=== PATIENT | male | born 1950 | race Caucasian/White ===

== ENCOUNTER → 2017-11-29 | Outpatient (CLI) | payer OTHER, MEDICARE ==
--- NOTE | 2017-11-29 16:00 | DIAGNOSTIC IMAGING REPORT ---
TEMPORAL ORB/SELLA/TEMP W/O CLINICAL HISTORY: 67 years-old Male presenting with CHRONIC MASTOIDITIS. TECHNIQUE: Multidetector CT of the temporal bones was performed without the use of intravenous contrast. IV contrast: None. A dose lowering technique was used consistent with the principles of ALARA (as low as reasonably achievable). COMPARISON: None. CT DOSE (mGy.cm): The estimated cumulative dose is 395.92 mGycm. FINDINGS: Rehabilitation Services Counselor topogram: Unremarkable. Mucosal thickening in the maxillary sinuses and ethmoid air cells. Mucosal thickening narrows the left nasal frontoethmoidal recess and left ostiomeatal unit. The right nasal frontoethmoidal recess and ostiomeatal unit are patent. Postsurgical changes of left mastoidectomy. Soft tissue, possibly packing material, noted in the operative bed in the left mastoid air cells. The left ossicles are poorly delineated, possibly eroded. The left tympanic membrane is not appreciated. The right tympanic membrane is abnormally thickened though the right ossicles are preserved. Trace fluid noted in the right mastoid air cells. No significant fluid in the right middle ear. Osseous septations of the right mastoid air cells are preserved. No osseous erosion or sclerosis. The bilateral external auditory canals are patent. The bilateral inner ears structures are preserved. No abnormal sclerosis or osteolysis. Allowing for extensive streak artifact at the level of the nasopharynx, no mass lesion obstructs the fossae of Rosenmuller. IMPRESSION: 1. Postsurgical changes of left mastoidectomy. 2. Trace fluid in the right mastoid air cells. No evidence of osseous erosion or sclerosis to suggest invasive or chronic mastoiditis. 3. Abnormal thickening of the right tympanic membrane. Correlate with physical exam. 4. Mucosal thickening in the paranasal sinuses without jeff evidence of acute sinusitis. Electronically signed by: Johnnie Simms M.D. 11/29/2017 3:59 PM Dictated Date/Time: 11/29/2017 3:51 PM
== END | disposition home or self-care (01) ==
LOC: C.CTS 15:26
PROVIDERS: ATTEND Otolaryngology
DX: H70.10 Chronic mastoiditis, unspecified ear (principal)

== ENCOUNTER 2017-12-31 05:19 | Day surgery (SDC) | payer OTHER, MEDICARE ==
[2017-12-28 13:45] VITALS: BMI 35.0
--- NOTE | 2017-12-28 14:35 | PAT Medication Instructions ---
Service Date December 28, 2017. Current Home Medication List Albuterol Sulfate (Proair Respiclick), 2 PUFF INH PRN Aspirin (Aspirin Ec), 81 MG PO QPM Calcium Carbonate-Vitamin D (Calcium + D), 1 TAB PO QPM Ciprofloxacin/Dexamethasone (Ciprodex 0.3-0.1 %), 2 DROPS OTL BID Fluticasone Prop/Salmeterol (Advair Diskus 250/50 60 Dose), 1 PUFF INH BID Furosemide (Lasix), 20 MG PO PRN Home O2 Therapy (Oxygen), 2 LITERS NA PRN Multivitamin (Multivitamin), 2 TAB PO QPM Pregabalin (Lyrica), 150 MG PO QPM Tiotropium [place] (Spiriva Respimat), 1 PUFF INH QAM Medication Instructions For Your Scheduled Surgery -Check with your surgeon for instructions for: Aspirin (Aspirin Ec), 81 MG PO QPM -Continue as needed: Home O2 Therapy (Oxygen), 2 LITERS NA PRN - Hold the following medications the morning of surgery: Furosemide (Lasix), 20 MG PO PRN - Take the following medications the morning of surgery with a sip of water: Albuterol Sulfate (Proair Respiclick), 2 PUFF INH PRN (if needed, and bring it with you to the hospital) Ciprofloxacin/Dexamethasone (Ciprodex 0.3-0.1 %), 2 DROPS OTL BID Fluticasone Prop/Salmeterol (Advair Diskus 250/50 60 Dose), 1 PUFF INH BID Tiotropium [place] (Spiriva Respimat), 1 PUFF INH QAM - Take the following medications as scheduled the night before surgery: Albuterol Sulfate (Proair Respiclick), 2 PUFF INH PRN (if needed) Calcium Carbonate-Vitamin D (Calcium + D), 1 TAB PO QPM Ciprofloxacin/Dexamethasone (Ciprodex 0.3-0.1 %), 2 DROPS OTL BID Fluticasone Prop/Salmeterol (Advair Diskus 250/50 60 Dose), 1 PUFF INH BID Multivitamin (Multivitamin), 2 TAB PO QPM Pregabalin (Lyrica), 150 MG PO QPM If you have any questions please call us at [phone] or [phone] or [phone]
[2017-12-28 15:38] LABS: BASO % 0.3 %; BASO ABS # 0.03 K/uL (0-0.2); EOS % 3.2 %; EOS ABS # 0.29 K/uL (0-0.5); HEMATOCRIT 46.9 % (42-52); HEMOGLOBIN 15.8 g/dL (14.0-18.0); IG# 0.02 K/uL (0.00-0.02); LYMPH % 30.5 %; LYMPH ABS # 2.75 K/uL (1.2-3.4); MEAN CELL VOLUME 97.1 fL (80-100); MEAN CORPUSCULAR HEMOGLOBIN 32.7 pg (25-34); MEAN CORPUSCULAR HGB CONC 33.7 g/dl (32-36); MONO % 5.9 %; MONO ABS # 0.53 K/uL (0.11-0.59); NEUT % 59.9 %; PLATELET COUNT 173 K/uL (130-400); RED CELL DISTRIBUTION WIDTH CV 13.1 % (11.5-14.5); RED CELL DISTRIBUTION WIDTH SD 46.8 fL (36.4-46.3); WHITE BLOOD COUNT 9.02 K/uL (4.8-10.8)
[2017-12-28 16:33] LABS: CALCIUM 9.2 mg/dl (8.5-10.1); CREATININE 1.21 mg/dl (0.60-1.40); POTASSIUM 4.1 mmol/L (3.5-5.1)
--- NOTE | 2017-12-29 15:47 | History and Physical ---
History & Physical Date December 29, 2017. Chief Complaint ear infections, sinusitis History of Present Illness The patient is a 67 year old male with complaints of chronic sinusitis and otitis media Additional History Hepatic Disease: No Endocrine Disorder: No Kidney Disease: No Hypertension: No Heart Disease: No Bleeding Tendencies: No Infectious Diseases: No Allergies Coded Allergies: Penicillins (Verified Allergy, Unknown, SWELLING ALL OVER-NO SOB, 12/28/17) Home Medications Scheduled Albuterol Sulfate (Proair Respiclick), 2 PUFF INH PRN Aspirin (Aspirin Ec), 81 MG PO QPM Calcium Carbonate-Vitamin D (Calcium + D), 1 TAB PO QPM Ciprofloxacin/Dexamethasone (Ciprodex 0.3-0.1 %), 2 DROPS OTL BID Fluticasone Prop/Salmeterol (Advair Diskus 250/50 60 Dose), 1 PUFF INH BID Furosemide (Lasix), 20 MG PO PRN Home O2 Therapy (Oxygen), 2 LITERS NA PRN Multivitamin (Multivitamin), 2 TAB PO QPM Pregabalin (Lyrica), 150 MG PO QPM Tiotropium [place] (Spiriva Respimat), 1 PUFF INH QAM Physical Examination Skin: warm/dry, no rash Eyes: normal inspection, EOMI, sclerae normal ENT: normal ENT inspection, pharynx normal Head: normocephalic, atraumatic Neck: supple, no adenopathy, trachea midline Respiratory/Chest: lungs clear, normal breath sounds, no respiratory distress Cardiovascular: regular rate, rhythm, no edema, no murmur Abdomen / GI: normal bowel sounds, non tender Back: normal inspection Extremities: normal inspection, normal range of motion Neurologic/Psych: no motor/sensory deficits, alert, normal reflexes, oriented x 3 Diagnosis chronic sinusitis and otitis media Plan of Treatment endoscopic sinus surgery, BMT, balloon eustachian tubes
[~2017-12-31] VITALS: Ht 172.7 cm; Wt 103.8 kg
[~2017-12-31 05:19] MED LIST: ADVIN25/60 INH; ALBU18002 INH; ASPI81TA28 PO; CALC600T9 PO; CPRDOTS OTL; FURO-85 PO; MULT-506 PO; OXGN; PREG1CAP70 PO; TIOT1SPR INH
[2017-12-31 05:53] VITALS: BP 205/88; PULSE 88; TEMP 36.7; O2SAT 94; Ht 172.7 cm; Wt 103.8 kg
[2017-12-31] MEDS ORDERED: LACTATED RINGER'S 1000ML 1,000 ML IV SCH (06:00)
[2017-12-31] MEDS ORDERED: CEFAZOLIN 2000MG IV PUSH 15 ML IV SCH (06:00)
[2017-12-31] MEDS ORDERED: GELATIN SPONGE 12-7MM ONE (06:56)
[2017-12-31] MEDS ORDERED: BACITRACIN OINT 15 GM TUBE ONE (06:57)
[2017-12-31] MEDS ORDERED: LIDO 2%/EPINEPHRINE 1:100000 20 ML VIAL ONE (06:57)
[2017-12-31] MEDS ORDERED: EpINEphrine INJ 1MG/ML AMP 1 MG/ML AMP ONE (06:57)
[2017-12-31] MEDS ORDERED: TRIAMCINOLONE ACET 40 MG/ML VIAL ONE (06:57)
[2017-12-31] MEDS ORDERED: LIDOCAINE 4% INH SOLN 4 ML BTL ONE (06:57)
[2017-12-31] MEDS ORDERED: LIDOCAINE HCL 2% 2 ML VIAL (20MG/ML) ONE (07:05)
[2017-12-31] MEDS ORDERED: SUCCINYLCHOLINE CHLORIDE 20 MG/ML 10 ML VIAL IV ONE (07:05)
[2017-12-31] MEDS ORDERED: GLYCOPYRROLATE INJ 0.2 MG/ML VIAL ONE (07:05)
[2017-12-31] MEDS ORDERED: EpHEDrine SULFATE INJ 50 MG/ML AMP ONE (07:05)
[2017-12-31] MEDS ORDERED: PHENYLEPHRINE HCL INJ 10 MG/ML VIAL ONE (07:05)
[2017-12-31] MEDS ORDERED: PROPOFOL IV EMULSION 10 MG/ML 20 ML VIAL ONE (07:05)
[2017-12-31] MEDS ORDERED: DEXAMETHASONE SOD INJ 4 MG/ML VIAL ONE (07:05)
[2017-12-31] MEDS ORDERED: NEOSTIGMINE METHYLSULFATE 5 MG/5 ML SYR ONE (07:05)
[2017-12-31] MEDS ORDERED: ONDANSETRON INJ 2 MG/ML 2 ML VIAL ONE ×2 (07:05→09:47)
[2017-12-31] MEDS ORDERED: MIDAZOLAM HCL 1 MG/ML 2ML VIAL ONE (07:07)
[2017-12-31] MEDS ORDERED: FENTANYL CITRATE INJ 50 MCG/1 ML 2 ML VIAL ONE (07:07)
[2017-12-31] MEDS ORDERED: OFLOXACIN 0.3% OP SOLN 5 ML BTL ONE (07:12)
[2017-12-31] MEDS ORDERED: ATROPINE SULFATE 0.1 MG/ML 5ML SYR IV PRN (07:15)
[2017-12-31] MEDS ORDERED: ONDANSETRON INJ 2 MG/ML 2 ML VIAL IV PRN (07:15)
[2017-12-31] MEDS ORDERED: FENTANYL CITRATE INJ 50 MCG/1 ML 2 ML VIAL IV PRN (07:15)
[2017-12-31] MEDS ORDERED: EpHEDrine SULFATE INJ 50 MG/ML AMP IV PRN (07:15)
--- NOTE | 2017-12-31 07:20 | History & Physical Bridge Note ---
H&P Re-Evaluation Bridge Note: I have examined the patient, reviewed the History & Physical and in the interval since the performance of the History & Physical I have noted the following changes of clinical significance: No changes noted
[2017-12-31] MEDS ORDERED: SODIUM CHLORIDE 0.9% 1000ML 1,000 ML IV SCH (09:22)
[2017-12-31] MEDS ORDERED: OXYC-57 PO (09:23)
[2017-12-31] MEDS ORDERED: AZIT250T PO (09:23)
--- NOTE | 2017-12-31 09:25 | Discharge Instructions ---
Discharge Instructions Date of Service December 31, 2017. Admission Reason for Admission: Chronic Otitis Media, Chronic Sinusitis Discharge Discharge Diagnosis / Problem: same Discharge Goals Goal(s): Therapeutic intervention Activity Recommendations Activity Limitations: resume your previous activity . Instructions / Follow-Up Instructions / Follow-Up ACTIVITY RECOMMENDATIONS: * Take it easy today. * Return to regular activity tomorrow. OVER THE COUNTER MEDICATIONS: * You may use Tylenol for pain * Avoid aspirin or aspirin containing products, e.g. as they may increase bleeding. DIET: Resume previous diet RETURN TO SCHOOL/WORK: May return to normal activities tomorrow. SPECIAL CARE INSTRUCTIONS: * Drainage is not unusual during the first few days after placement of tubes. The drainage may be bloody. If it is foul smelling or very thick, please notify the doctor. Call or cell phone . * Keep water out of the ears when shampooing or bathing. Use cotton balls covered with Vaseline or "Macks" ear plugs. * Call physician if increased pain, fever over 101 degrees F. or any problems. FOLLOW UP VISIT: Follow-up Visit with Dr. Estrada in 2 weeks. Please call to schedule.ACTIVITY RECOMMENDATIONS: * Being up and around is good, but no strenuous activity, heavy lifting or physical exertion for one week. * Keep your head elevated 30 degrees when lying down or sleeping. * Do not blow your nose for 48 hours, sniff back instead. * Avoid hot showers. OVER THE COUNTER MEDICATIONS: * You may use Tylenol * Avoid aspirin or aspirin containing products, e.g. as they may increase bleeding. SPECIAL CARE INSTRUCTIONS: * Expect to have bloody drainage from your nose and/or down your throat for one to three days. Change drip pad as needed. * Begin irrigating your nose with saline solution today, at least six to ten times per day and sniff back to help remove old clots or crust. * You may experience nasal and facial congestion, pain and pressure, this is normal. * Please call with any significant and/or progressive pain, redness, swelling around the eyes, visual changes, fever of 101.5 degrees F, active bleeding or any problems or concerns. * If active bleeding occurs, spray the nose three times at one minute intervals with Afrin spray and call or cell phone: . If unable to reach the doctor, go to the nearest Emergency Department. Special Diet: * Avoid extremely hot fluids. FOLLOW UP VISIT: Follow-up Visit with Dr. Estrada If not already scheduled, please call to schedule. Current Hospital Diet Patient's current hospital diet: Discharge Diet Recommended Diet: Regular Diet Procedures Procedures Performed: Endoscopic Sinus Surgery; Bilateral Myringotomy Tubes; Balloon Eustachian Tubes Pending Studies Studies pending at discharge: no Medical Emergencies . Who to Call and When: Medical Emergencies: If at any time you feel your situation is an emergency, please call 911 immediately. . Non-Emergent Contact Non-Emergency issues call your: Primary Care Provider . "Provider Documentation" section prepared by Bee Estrada. . [place] Drug Monitoring Program Search Results: no issues identified
--- NOTE | 2017-12-31 09:26 | [facility] Post Operative Brief Note ---
Immediate Operative Summary Operative Date December 31, 2017. Pre-Operative Diagnosis Chronic sinusitis and otitis media Post-Operative Diagnosis Same as preoperative Procedure(s) Performed Endoscopic Sinus Surgery; Bilateral Myringotomy Tubes; Balloon Eustachian Tubes Surgeon Dr. Bee Estrada Sanitary Engineer Surgeon(s) None Estimated Blood Loss 100ml Findings Consistent with Post-Op Diagnosis Specimens A: Left nasal polyp Drains None Anesthesia Type General Complication(s) none Disposition Accompanied Pt To Recover: yes Disposition: Recovery Room / PACU
[2017-12-31] MEDS ORDERED: HYDROCODONE/ACETAMIN 5/325MG TAB PO PRN ×2 (09:30)
[2017-12-31] MEDS ORDERED: ROCURONIUM BROMIDE 10 MG/ML 5 ML VIAL ONE (09:47)
[2017-12-31 10:15] VITALS: BP 160/98; PULSE 79; TEMP 36.7; O2SAT 96
--- NOTE | 2017-12-31 10:26 | Anesthesiology Progress Note ---
Anesthesia Post Op Note Date & Time December 31, 2017 at 10:25 Vital Signs Pain Intensity: 0 Vital Signs Past 12 Hours Date Time Temp Pulse Resp B/P (MAP) Pulse Ox O2 Delivery O2 Flow Rate FiO2 12/31/17 10:00 36.2 79 16 164/80 95 Room Air 12/31/17 09:50 82 16 172/89 95 Room Air 12/31/17 09:40 80 16 178/55 98 Oxymask 4 12/31/17 09:30 36 81 16 182/90 98 Oxymask 4 12/31/17 05:53 36.7 88 22 205/88 (127) 94 Room Air Notes Mental Status: alert / awake / arousable, participated in evaluation Pt Amnestic to Procedure: Yes Nausea / Vomiting: adequately controlled Pain: adequately controlled Airway Patency, RR, SpO2: stable & adequate BP & HR: stable & adequate Hydration State: stable & adequate Anesthetic Complications: no major complications apparent
[2017-12-31 10:55] VITALS: BP 168/91; PULSE 87; O2SAT 95
[2017-12-31 11:35] VITALS: BP 139/97; PULSE 89; TEMP 36.8; O2SAT 94
--- NOTE | 2017-12-31 15:02 | OPERATIVE REPORT ---
DATE OF OPERATION: 12/31/2017 PREOPERATIVE DIAGNOSES: Chronic sinusitis and chronic otitis media. POSTOPERATIVE DIAGNOSES: Chronic sinusitis and chronic otitis media. PROCEDURES: Right and left frontal sinusotomy; right and left total ethmoidectomy; right and left maxillary sinus antrostomies; bilateral myringotomy tubes; balloon of eustachian tubes, bilateral. SURGEON: Bee Estrada M.D. ANESTHESIA: General endotracheal. COMPLICATIONS: None. BLOOD LOSS: 100 mL. HISTORY: This 67-year-old gentleman had tympanomastoidectomy at [facility] in 2004, but continues to have drainage from the left ear more so than the right ear. He was found to have perforation of the right ear and a large cyst in the mastoid of the left ear with the ear drum being dull and retracted with fluid. He also has significant chronic sinusitis documented on CT scan with polyps and also blocked eustachian tubes. DESCRIPTION OF PROCEDURE: The patient brought to the operating room and placed in supine position. General endotracheal anesthesia was induced, prepped with Betadine paint, draped in the usual sterile manner. The right ear was visualized with the microscope, irrigated with peroxide and cleaned of cerumen. Myringotomy incision was made anterior inferiorly by extending the small perforation and then a Paparella tube was inserted. The left ear was visualized and myringotomy and insertion of Paparella tube was performed in a similar manner opening up the tympanic membrane inferiorly with the myringotomy knife and then placing the Paparella tube after evacuating fluid from the middle ear space. Again, noted was a large cystic lesion posterior superiorly from the mastoid with no sign of cholesteatoma. Attention was turned to the sinuses. The nose was prepped with Betadine paint and then decongested using topical cottonoids with a solution of 4 mL of 4% Xylocaine mixed with 1 mL of epinephrine. Injection 2% Xylocaine with 1:100,000 strength epinephrine was also used. The left nasofrontal duct was cannulated with guidewire and dilated using the 6 mm balloon with Apexigen computer guidance. A guidewire was left in place as a marker for frontal sinusotomy as the catheter was withdrawn. The frontal sinusotomy was performed using the shaver coupled with the Apexigen device, removing the anterior wall and then the posterior wall of the agger nasi cell, opening up the nasal frontal duct by removing the posterior wall of the agger nasi cell extending this posteriorly and superiorly opening up the nasofrontal duct leaving the mucosa there intact. At this point, total ethmoidectomy was performed opening of the bullae ethmoidalis, going through the ground lamella into the posterior ethmoid air cells, delineating the posterior most ethmoid air cell posteriorly and then the skull base superiorly and the lamina papyracea laterally with the BrainLAB device and then exonerating all the posterior and all the anterior ethmoid air cells up to the previously dilated nasofrontal duct with the shaver. Next, sinus was cannulated with guidewire, dilated using the 6 mm balloon and then further opened by removing polypoid mucosa at its posterior border at the anterior wall of the bullae ethmoidalis. The right frontal sinusotomy, total ethmoidectomy, and maxillary sinus antrostomy was performed in a similar manner. There was a large polyp in the right middle meatus, which was removed and sent for biopsy. After completing the frontal sinusotomy, total ethmoidectomy, and maxillary sinus antrostomy on the right side, attention was turned to the eustachian tubes. These were dilated using the AERA balloon dilating the eustachian tube to 12 atmospheric pressures and sustaining the dilation for 2 minutes on each side. The patient tolerated the procedure well. Contour stent was placed in the left nasofrontal duct and then Propel stents were placed in the middle meatus area. The patient tolerated the procedure well and was taken to recovery area in satisfactory condition. I attest to the content of the Intraoperative Record and any orders documented therein. Any exception s are noted below.
== END 2017-12-31 11:43 | disposition home or self-care (01) ==
LOC: C.ACU 05:19
PROVIDERS: ATTEND Otolaryngology
DX: J32.9 Chronic sinusitis, unspecified (principal); H66.93 Otitis media, unspecified, bilateral; J44.9 Chronic obstructive pulmonary disease, unspecified; Z87.891 Personal history of nicotine dependence; Z88.0 Allergy status to penicillin; Z79.82 Long term (current) use of aspirin; Z90.89 Acquired absence of other organs; Z98.890 Other specified postprocedural states; E66.9 Obesity, unspecified
CPT/HCPCS: 31255; 31267; 61782; 69420; C9745